=== PATIENT | male | born 1990 | race Caucasian/White ===

== ENCOUNTER → 2016-12-21 | Outpatient (CLI) | payer BC ==
[~2016-12-21] VITALS: Ht 172.7 cm; Wt 139.3 kg
[~2016-12-21] MED LIST: SYNTHROID137 MCG PO
== END | disposition home or self-care (01) ==
LOC: AMB 12-14 12:30 → OPR 12-14 14:00 → AMB 06:46
PROC: 0DBE8ZZ Excision of Large Intestine, Via Natural or Artificial Opening Endoscopic (ICD-10-PCS; principal; 2016-12-21)
DX: R19.7 Diarrhea, unspecified (principal); D12.0 Benign neoplasm of cecum; K64.9 Unspecified hemorrhoids; E03.9 Hypothyroidism, unspecified
CPT/HCPCS: 88305; B4087; J2250; J3010